=== PATIENT | female | born 1975 | race Caucasian/White ===

== ENCOUNTER 2017-01-05 16:01 | Emergency (ER) | payer OTHER ==
--- NOTE | 2017-01-05 17:36 | DIAGNOSTIC IMAGING REPORT ---
PROCEDURE: XR LUMBAR SPINE 2 OR 3 VIEWS INDICATION: LOWER BACK PAIN TECHNIQUE: Three views of the lumbar spine COMPARISON: None. FINDINGS: Five lumbar-type vertebral bodies are present. Normal vertebral body height without fracture. Normal AP and transverse alignment. Disc spacing is normal. No significant endplate or facet joint degeneration. The visible osseous pelvis and bowel gas pattern are normal. IUD in place. IMPRESSION: 1. Intact lumbar spine.
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
--- NOTE | 2017-01-05 17:55 | ED ORDER SUMMARY ---
..... Patient: RENATE BELLAMY OrderSheet [facility] VisitID: [id number] [place] [address] 41y, F Registration Date/Time: 01/05/2017 ORDER SHEET Weight: 53.0 kg (stated) Allergies: Codeine GENERAL ORDERS: POC - Urine hCG (16:32 01/05/2017 EKoroleva P.A.-C) (Ack 16:54 LNations ER Tech1) (17:09 KKnebel R.N.) Lumbar Spine 2 or 3V Urgent (17:09 01/05/2017 EKoroleva P.A.-C) (Ack 17:14 LNations ER Tech1) [facility] MEDICATION ORDERS: Dexamethasone PO 8mg (NOW) (17:11 01/05/2017 EKoroleva P.A.-C) (17:39 KKnebel R.N.) Tylenol PO 650 mg (NOW) (17:54 01/05/2017 EKoroleva P.A.-C) (18:14 KKnebel R.N.) IV FLUIDS: ORDER SHEET NOTES: [Electronically signed by Francy Seaman P.A.-C (18:12 01/05/2017)] [Electronically signed by Esther Gonzalez R.N. (19:48 01/05/2017)] [Electronically locked/signed by Esther Gonzalez R.N. (19:48 01/05/2017)]
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
--- NOTE | 2017-01-05 17:55 | ED ORDER SUMMARY ---
..... Patient: RENATE BELLAMY OrderSheet [facility] VisitID: [id number] [place] [address] 41y, F Registration Date/Time: 01/05/2017 ORDER SHEET Weight: 53.0 kg (stated) Allergies: Codeine GENERAL ORDERS: POC - Urine hCG (16:32 01/05/2017 EKoroleva P.A.-C) (Ack 16:54 LNations ER Tech1) (17:09 KKnebel R.N.) Lumbar Spine 2 or 3V Urgent (17:09 01/05/2017 EKoroleva P.A.-C) (Ack 17:14 LNations ER Tech1) [facility] MEDICATION ORDERS: Dexamethasone PO 8mg (NOW) (17:11 01/05/2017 EKoroleva P.A.-C) (17:39 KKnebel R.N.) Tylenol PO 650 mg (NOW) (17:54 01/05/2017 EKoroleva P.A.-C) (18:14 KKnebel R.N.) IV FLUIDS: ORDER SHEET NOTES: [Electronically signed by Francy Seaman P.A.-C (18:12 01/05/2017)] [Electronically signed by Esther Gonzalez R.N. (19:48 01/05/2017)] [Electronically locked/signed by Esther Gonzalez R.N. (19:48 01/05/2017)]
--- NOTE | 2017-01-05 17:55 | ED CLINICAL REPORT ---
Clinical Report - Physicians/Mid Levels [facility] [address] [place] [address] 01/05/2017 16:00 [id number] Time Seen: 16:14 Redd 19 2016. Arrived- By private vehicle. Historian- patient. HISTORY OF PRESENT ILLNESS Chief Complaint: FALL. Location of injuries- lower back, right ankle and left ankle. The injury occurred yesterday. Fell. Occurred at home. The patient complains of moderate pain. The patient sustained a blow to the head. No neck pain or loss of consciousness. (patient sustained a fall yesterday on stairs, tripping, pain to her right ankle as well as left ankle, however has been ambulatory. SHe reports striking the posterior aspect of her head as well. NO LOC.). REVIEW OF SYSTEMS No hearing loss, chest pain or fever. She has no pain on weight bearing. All systems otherwise negative, except as recorded above. SOCIAL HISTORY Smoker- current status unknown. History of drug use. No alcohol use. ADDITIONAL NOTES The nursing notes have been reviewed. PHYSICAL EXAM Vital Signs: 01/05/2017 16:10 BP: 100/58. HR: 63. RR: 16. O2 saturation: 95%. Temp: 98.1 F. Pain level now: 9/10. Appearance: Alert. No apparent distress. No backboard or C-collar. Head: Head non-tender. No swelling of head. ENT: No dental injury. No malocclusion. Neck: Painless ROM. Non-tender. No vertebral tenderness. Posterior neck: No tenderness. CVS: Heart sounds normal. Pulses normal. Respiratory: Breath sounds normal. Chest nontender. No chest wall injury. Abdomen: No visible injury. No mass. No abdominal tenderness or rebound tenderness. Back: Tenderness in the right lower and left lower lumbar area. Skin: Skin intact. Skin warm. Extremities: Normal inspection. Right wrist. No tenderness. Left wrist. No tenderness. Pelvis stable. Pelvis. No tenderness. No ecchymosis. No deformity. Right ankle. No tenderness or laceration. Left ankle. No tenderness or laceration. Neuro: [place] Coma Scale: 15- eyes open spontaneously (4); best verbal response- oriented x 3 (5); best motor response- obeys commands (6). Oriented X 3. No alteration in mental status. LABS, X-RAYS, AND EKG LS-Spine X-rays: (IMPRESSION: 1. Intact lumbar spine. Electronically Final signed by:Melisa Mina MD 01/05/2017 5:31:02 PM). PROGRESS AND PROCEDURES Course of Care: patient in the emergency room and no signs of injury. She has some lumbar tenderness, however no signs of fracture on x-ray. Patient is stable. No LOC. Patient with no signs of distress. Abd soft and non tender. Mechanical fall. Pt ambulatory, no signs of injury to ankle. 01/05/2017 16:10 BP: 100/58. HR: 63. RR: 16. O2 saturation: 95%. Temp: 98.1 F. Pain level now: 9/10. Patient is stable. Physical exam findings are improved. Symptoms better. Patient/family counseled. Disposition: Discharged. Condition: good. CLINICAL IMPRESSION Contusion to the lower back. Fall on same level by slipping. INSTRUCTIONS Apply ice. Prescription Medications: Ultram 50 mg: take 1 orally every 8 hours for 5 days, as needed for pain. Dispense fifteen (15). No refills. Substitution is permissible. OTC Medications: Take OTC medications according to label instructions. Available over the counter. Acetaminophen (available over the counter): take according to label instructions. Motrin IB 200 mg (available over the counter): take 4 orally every 8 hours as needed for pain Follow-up: Follow up with your doctor in three days. (Electronically signed by Francy Seaman P.A.-C 01/05/2017 18:12)
--- NOTE | 2017-01-05 19:48 | ED DISCHARGE INSTRUCTIONS ---
Patient: RENATE BELLAMY General Instructions [facility] VisitID: [id number] [place] [address] 41y, F Registration Date/Time: 01/05/2017 Contusion to the lower back. Fall on same level by slipping. INSTRUCTIONS Apply ice. Prescription Medications: Ultram 50 mg: take 1 orally every 8 hours for 5 days, as needed for pain. Dispense fifteen (15). No refills. Substitution is permissible. OTC Medications: Take OTC medications according to label instructions. Available over the counter. Acetaminophen (available over the counter): take according to label instructions. Motrin IB 200 mg (available over the counter): take 4 orally every 8 hours as needed for pain Follow-up: Follow up with your doctor in three days. ADDITIONAL INFORMATION Mechanical Fall You have had a fall today. It appears that the cause is mechanical. That means that you slipped, tripped or lost your balance. If your fall had been due to fainting or a seizure, further tests would be required. Home Care: Rest today and resume your normal activities when you are feeling back to normal. If you were injured during the fall, follow the advice from your doctor regarding care of your injury. You may use acetaminophen (Tylenol) or ibuprofen (Motrin, Advil) to control pain, unless another pain medicine was prescribed. [NOTE: If you have chronic liver or kidney disease or ever had a stomach ulcer or GI bleeding, talk with your doctor before using these medicines.] Fall Prevention: Was there anything that caused your fall that can be fixed, removed, or replaced? Make your home safe by keeping walkways clear of objects you may trip over. Use non-slip pads under rugs. Do not walk in poorly lit areas. Do not stand on chairs or wobbly ladders. Use caution when reaching overhead or looking upward. This position can cause a loss of balance. Be sure your shoes fit properly, have non-slip bottoms and are in good condition. Be cautious when going up and down curbs, and walking on uneven sidewalks. If your balance is poor, consider using a cane or walker. Stay as active as you can. Balance, flexibility, strength, and endurance all come from exercise. They all play a role in preventing falls. Follow Up with your doctor or as advised by our staff. Get Prompt Medical Attention if any of the following occur: Repeated mechanical falls, or unexplained falls Dizziness, fainting or seizure Severe headache Chest pain or shortness of breath Palpitations (very rapid or very slow or irregular heartbeat) Blood in vomit, stools (black or red color) Weakness of an arm or leg or one side of the face Difficulty with speech or vision Contusion, Back You have a CONTUSION of the back. This is a bruise with swelling and some bleeding under the skin. There are no broken bones. This injury takes a few days to a few weeks to heal. It is normal to feel muscle stiffness and aching in the area of injury the next day. Home Care: 1) Rest and relax your back muscles until you are feeling better. 2) Apply an ice pack (crushed or cubed ice in a plastic bag, wrapped in a towel) for 20 minutes every 2-4 hours during the first two days after a new injury. Local heat (hot shower, hot bath or heating pad) and massage will help reduce muscle spasm . Some patients feel best alternating treatments. Use the method that feels best to you for. 3) You may use acetaminophen (Tylenol) or ibuprofen (Motrin, Advil) to control pain, unless another pain medicine was prescribed. [ NOTE : If you have chronic liver or kidney disease or ever had a stomach ulcer or GI bleeding, talk with your doctor before using these medicines.] Follow Up with your doctor or this facility if your symptoms do not start to improve after three days. [NOTE: If X-rays were taken, they will be reviewed by a radiologist. You will be notified of any new findings that may affect your care.] Get Prompt Medical Attention if any of the following occur: -- Pain becomes worse or spreads to one or both legs -- Weakness or numbness in one or both legs -- Loss of bowel or bladder control -- Numbness in the groin or genital area -- Redness, warmth or drainage from the skin Ibuprofen Oral tablet What is this medicine? IBUPROFEN (eye BYOO proe fen) is a non-steroidal anti-inflammatory drug (NSAID). It is used for dental pain, fever, headaches or migraines, osteoarthritis, rheumatoid arthritis, or painful monthly periods. It can also relieve minor aches and pains caused by a cold, flu, or sore throat. How should I use this medicine? Take this medicine by mouth with a glass of water. Follow the directions on the prescription label. Take this medicine with food if your stomach gets upset. Try to not lie down for at least 10 minutes after you take the medicine. Take your medicine at regular intervals. Do not take your medicine more often than directed. A special MedGuide will be given to you by the pharmacist with each prescription and refill. Be sure to read this information carefully each time. Talk to your legal director regarding the use of this medicine in children. Special care may be needed. What side effects may I notice from receiving this medicine? Side effects that you should report to your doctor or health adult daycare coordinator as soon as possible: allergic reactions like skin rash, itching or hives, swelling of the face, lips, or tongue black or bloody stools, blood in the urine or in vomit breathing problems changes in vision chest pain general ill feeling or flu-like symptoms nausea or vomiting redness, blistering, peeling or loosening of the skin, including inside the mouth slurred speech or weakness on one side of the body stomach pain unexplained weight gain or swelling unusually weak or tired yellowing of eyes or skin Side effects that usually do not require medical attention (report to your doctor or health adult daycare coordinator if they continue or are bothersome): constipation or diarrhea dizziness gas or heartburn stomach upset What may interact with this medicine? Do not take this medicine with any of the following medications: cidofovir ketorolac methotrexate pemetrexed This medicine may also interact with the following medications: alcohol aspirin diuretics lithium other drugs for inflammation like prednisone warfarin What if I miss a dose? If you miss a dose, take it as soon as you can. If it is almost time for your next dose, take only that dose. Do not take double or extra doses. Where should I keep my medicine? Keep out of the reach of children. Store at room temperature between 15 and 30 degrees C (59 and 86 degrees F). Keep container tightly closed. Throw away any unused medicine after the expiration date. What should I tell my health care provider before I take this medicine? They need to know if you have any of these conditions: asthma cigarette smoker drink more than 3 alcohol containing drinks a day heart disease or circulation problems such as heart failure or leg edema (fluid retention) high blood pressure kidney disease liver disease stomach bleeding or ulcers an unusual or allergic reaction to ibuprofen, aspirin, other NSAIDS, other medicines, foods, dyes, or preservatives or trying to get breast-feeding What should I watch for while using this medicine? Tell your doctor or healthcare professional if your symptoms do not start to get better or if they get worse. This medicine does not prevent heart attack or stroke. In fact, this medicine may increase the chance of a heart attack or stroke. The chance may increase with longer use of this medicine and in people who have heart disease. If you take aspirin to prevent heart attack or stroke, talk with your doctor or health adult daycare coordinator. Do not take other medicines that contain aspirin, ibuprofen, or naproxen with this medicine. Side effects such as stomach upset, nausea, or ulcers may be more likely to occur. Many medicines available without a prescription should not be taken with this medicine. This medicine can cause ulcers and bleeding in the stomach and intestines at any time during treatment. Ulcers and bleeding can happen without warning symptoms and can cause . To reduce your risk, do not smoke cigarettes or drink alcohol while you are taking this medicine. You may get drowsy or dizzy. Do not drive, use machinery, or do anything that needs mental alertness until you know how this medicine affects you. Do not stand or sit up quickly, especially if you are an older patient. This reduces the risk of dizzy or fainting spells. This medicine can cause you to bleed more easily. Try to avoid damage to your teeth and gums when you brush or floss your teeth. You have been given the following additional information: Fall, Mechanical Contusion, Back Ibuprofen Oral tablet (Electronically signed by Francy Seaman P.A.-C 01/05/2017 18:12)
--- NOTE | 2017-01-05 19:48 | ED MED RECONCILIATION SUMMARY ---
Patient: RENATE BELLAMY Medication Reconciliation Report [facility] VisitID: [id number] [address] [place] [address] 41y, F Registration Date/Time: 01/05/2017 Weight: 53.0 kg Height/Length: 65 in. BMI: 19.5 ALLERGIES: Codeine The patient's Home Medications are listed below: THE FOLLOWING MEDICATIONS NEED TO BE RECONCILED: ClonazePAM Oral Vitamin D Oral Zyban Oral The source(s) of the original Home Medication information: Not obtained. The following Medications were given to the patient in the Emergency Department: Dexamethasone [PO] PO 8 mg, administered: 01/05/2017 5:39:00 PM Tylenol [PO] PO 650 mg, administered: 01/05/2017 6:14:00 PM The following Medications were prescribed to the patient: Take OTC medications according to label instructions. Available over the counter. -- Francy Seaman, P.A.-C Acetaminophen (available over the counter): take according to label instructions. -- Francy Seaman, P.A.-C Motrin IB 200 mg (available over the counter): take 4 orally every 8 hours as needed for pain -- Francy Seaman, P.A.-C Ultram 50 mg: take 1 orally every 8 hours for 5 days, as needed for pain. Dispense fifteen (15). No refills. Substitution is permissible. -- Francy Seaman, P.A.-C
--- NOTE | 2017-01-05 19:48 | ED MED RECONCILIATION SUMMARY ---
Patient: RENATE BELLAMY Medication Reconciliation Report [facility] VisitID: [id number] [address] [place] [address] 41y, F Registration Date/Time: 01/05/2017 Weight: 53.0 kg Height/Length: 65 in. BMI: 19.5 ALLERGIES: Codeine The patient's Home Medications are listed below: THE FOLLOWING MEDICATIONS NEED TO BE RECONCILED: ClonazePAM Oral Vitamin D Oral Zyban Oral The source(s) of the original Home Medication information: Not obtained. The following Medications were given to the patient in the Emergency Department: Dexamethasone [PO] PO 8 mg, administered: 01/05/2017 5:39:00 PM Tylenol [PO] PO 650 mg, administered: 01/05/2017 6:14:00 PM The following Medications were prescribed to the patient: Take OTC medications according to label instructions. Available over the counter. -- Francy Seaman, P.A.-C Acetaminophen (available over the counter): take according to label instructions. -- Francy Seaman, P.A.-C Motrin IB 200 mg (available over the counter): take 4 orally every 8 hours as needed for pain -- Francy Seaman, P.A.-C Ultram 50 mg: take 1 orally every 8 hours for 5 days, as needed for pain. Dispense fifteen (15). No refills. Substitution is permissible. -- Francy Seaman, P.A.-C
--- NOTE | 2017-01-05 19:48 | ED MAR SUMMARY ---
..... Medication Administration Record [facility] [address] [place] [address] Patient: RENATE BELLAMY Visit ID: [id number] 41y, F Weight: 53.0 kg Height/Length: 65 in BMI: 19.5 ALLERGIES: Codeine Given 17:39 01/05/2017 Esther Gonzalez, RSherryNSherry Medication Administered: DEXAMETHASONE [PO] (DEXAMETHASONE), Dose: 8 mg Tablets PO. Medication Ordered: Dexamethasone PO 8mg (NOW). Given 18:14 01/05/2017 Esther Gonzalez, R.N. Medication Administered: TYLENOL [PO] (ACETAMINOPHEN), Dose: 650 mg Tablets PO. Medication Ordered: Tylenol PO 650 mg (NOW).
--- NOTE | 2017-01-05 19:48 | ED MAR SUMMARY ---
..... Medication Administration Record [facility] [address] [place] [address] Patient: RENATE BELLAMY Visit ID: [id number] 41y, F Weight: 53.0 kg Height/Length: 65 in BMI: 19.5 ALLERGIES: Codeine Given 17:39 01/05/2017 Esther Gonzalez, RSherryNSherry Medication Administered: DEXAMETHASONE [PO] (DEXAMETHASONE), Dose: 8 mg Tablets PO. Medication Ordered: Dexamethasone PO 8mg (NOW). Given 18:14 01/05/2017 Esther Gonzalez, R.N. Medication Administered: TYLENOL [PO] (ACETAMINOPHEN), Dose: 650 mg Tablets PO. Medication Ordered: Tylenol PO 650 mg (NOW).
== END 2017-01-05 17:19 | disposition home or self-care (01) ==
LOC: ED SRH 16:01
DX: S30.0XXA Contusion of lower back and pelvis, initial encounter (principal); W01.0XXA Fall on same level from slipping, tripping and stumbling without subsequent striking against object, initial encounter; Y93.01 Activity, walking, marching and hiking; Y99.9 Unspecified external cause status; Y92.009 Unspecified place in unspecified non-institutional (private) residence as the place of occurrence of the external cause

== ENCOUNTER 2017-01-08 18:01 | Emergency (ER) | payer OTHER ==
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
--- NOTE | 2017-01-08 19:55 | ED ORDER SUMMARY ---
..... Patient: RENATE BELLAMY OrderSheet [facility] VisitID: [id number] [address] [place] [address] 41y, F Registration Date/Time: 01/08/2017 ORDER SHEET Weight: 52.6 kg (stated) Allergies: No Known Drug Allergy GENERAL ORDERS: CT Head wo Cont Urgent (18:53 01/08/2017 Alfred ESTRADA) (Ack 18:58 AMcQuoid ER Tech1) (19:22 MCampbell) CT Lumbar Spine wo Cont Urgent (18:56 01/08/2017 Alfred ESTRADA) (Ack 18:58 AMcQuoid ER Tech1) (19:22 MCampbell) MEDICATION ORDERS: IV FLUIDS: ORDER SHEET NOTES: [Electronically signed by Patrica Vargas (20:17 01/08/2017)] [Electronically signed by Michelle Beatty MD (11:20 01/18/2017)] [Electronically locked/signed by Patrica Vargas (20:17 01/08/2017)]
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
--- NOTE | 2017-01-08 19:55 | ED ORDER SUMMARY ---
..... Patient: RENATE BELLAMY OrderSheet [facility] VisitID: [id number] [address] [place] [address] 41y, F Registration Date/Time: 01/08/2017 ORDER SHEET Weight: 52.6 kg (stated) Allergies: No Known Drug Allergy GENERAL ORDERS: CT Head wo Cont Urgent (18:53 01/08/2017 Alfred ESTRADA) (Ack 18:58 AMcQuoid ER Tech1) (19:22 MCampbell) CT Lumbar Spine wo Cont Urgent (18:56 01/08/2017 Alfred ESTRADA) (Ack 18:58 AMcQuoid ER Tech1) (19:22 MCampbell) MEDICATION ORDERS: IV FLUIDS: ORDER SHEET NOTES: [Electronically signed by Patrica Vargas (20:17 01/08/2017)] [Electronically signed by Michelle Beatty MD (11:20 01/18/2017)] [Electronically locked/signed by Patrica Vargas (20:17 01/08/2017)]
--- NOTE | 2017-01-18 11:20 | ED MAR SUMMARY ---
..... Medication Administration Record [facility] [address] [place], [place] [id number] Patient: RENATE BELLAMY Visit ID: [id number] 41y, F Weight: 52.6 kg Height/Length: 65 in BMI: 19.3 ALLERGIES: No Known Drug Allergy
--- NOTE | 2017-01-18 11:20 | ED MAR SUMMARY ---
..... Medication Administration Record [facility] [address] [place], [place] [id number] Patient: RENATE BELLAMY Visit ID: [id number] 41y, F Weight: 52.6 kg Height/Length: 65 in BMI: 19.3 ALLERGIES: No Known Drug Allergy
--- NOTE | 2017-01-18 11:20 | ED MED RECONCILIATION SUMMARY ---
Patient: RENATE BELLAMY Medication Reconciliation Report [facility] VisitID: [id number] [address] [place] [address] 41y, F Registration Date/Time: 01/08/2017 Weight: 52.6 kg Height/Length: 65 in. BMI: 19.3 ALLERGIES: No Known Drug Allergy The patient's Home Medications are listed below: CONTINUE TAKING THE FOLLOWING MEDICATIONS: ClonazePAM Oral LaMICtal Oral Vitamin D Oral The source(s) of the original Home Medication information: Not obtained. The following Medications were given to the patient in the Emergency Department: None. The following Medications were prescribed to the patient: Hydrocodone/APAP 5mg / 325mg: take 1-2 orally every 6 hours as needed for pain. Dispense fifteen (15). No refill. -- Michelle Beatty MD
--- NOTE | 2017-01-18 11:20 | ED MED RECONCILIATION SUMMARY ---
Patient: RENATE BELLAMY Medication Reconciliation Report [facility] VisitID: [id number] [address] [place] [address] 41y, F Registration Date/Time: 01/08/2017 Weight: 52.6 kg Height/Length: 65 in. BMI: 19.3 ALLERGIES: No Known Drug Allergy The patient's Home Medications are listed below: CONTINUE TAKING THE FOLLOWING MEDICATIONS: ClonazePAM Oral LaMICtal Oral Vitamin D Oral The source(s) of the original Home Medication information: Not obtained. The following Medications were given to the patient in the Emergency Department: None. The following Medications were prescribed to the patient: Hydrocodone/APAP 5mg / 325mg: take 1-2 orally every 6 hours as needed for pain. Dispense fifteen (15). No refill. -- Michelle Beatty MD
--- NOTE | 2017-01-18 11:20 | ED DISCHARGE INSTRUCTIONS ---
Patient: RENATE BELLAMY General Instructions [facility] VisitID: [id number] [place] [address] 41y, F Registration Date/Time: 01/08/2017 Sprain of the tibiofibular ligament of the right ankle and tibiofibular ligament of the left ankle. INSTRUCTIONS (The CTs of your head and spine look good. There is no evidence of a neurologic injury, or of major bony trauma causing your symptoms. You've most likely sprained your ankles, which is responsible for the ongoing pain and occasional sensation of weakness. This will improve over time as your ankles heal. You may use the ankle wraps that you have mentioned to provide some extra support. You may bear weight on your feet and ankles, as tolerated.). Warnings: GENERAL WARNINGS: Return or contact your physician immediately if your condition worsens or changes unexpectedly, if not improving as expected, or if other problems arise. Your Current Medications: CONTINUE TAKING THE FOLLOWING MEDICATIONS: ClonazePAM Oral. LaMICtal Oral. Vitamin D Oral. Prescription Medications: Hydrocodone/APAP 5mg / 325mg: take 1-2 orally every 6 hours as needed for pain. Dispense fifteen (15). No refill. Follow-up: Follow up with your doctor in two weeks if not better. Understanding of the discharge instructions verbalized by patient. ADDITIONAL INFORMATION Sprain, Ankle ([place] Rules: No X-Ray) Based on your exam today, you have an ankle sprain. This is a tearing of the ligaments that hold the ankle joint together. [place] Ankle Rules are guidelines that help doctors and triage nurses avoid unnecessary X-rays. In your case, these rules tell us that the chance of a fracture causing your symptoms is so small that an X-ray is not advised. Sprains take from 36 weeks to heal. Sprains may be treated with an elastic wrap or an in-shoe splint to provide support and prevent reinjury. Very mild sprains may not require any additional support. Home care The following guidelines will help you care for your sprain at home: Stay off the injured leg as much as possible until you can walk on it without pain. You may use crutches during the first week for this purpose. (Crutches can be rented at many pharmacies or surgical/orthopedic supply stores.) Keep your leg elevated when sitting or lying down. This is very important during the first 48 hours. Make an ice pack (ice cubes in a plastic bag, wrapped in a towel) and apply over the injured area for 20 minutes every 1-2 hours the first day. You should continue with ice packs 3-4 times a day for the next two days. Continue the use of ice packs for relief of pain and swelling as needed. You may use acetaminophen or ibuprofen to control pain, unless another pain medicine was prescribed. If you have chronic liver or kidney disease or ever had a stomach ulcer or GI bleeding, talk with your doctor before using these medicines. Follow-up care Follow up with your doctor as advised. Check for any warning signs listed below. If you had X-rays today, they didnt show any broken bones, breaks, or fractures. Sometimes fractures dont show up on the first X-ray. Bruises and sprains can sometimes hurt as much as a fracture. These injuries can take time to heal completely. If your symptoms dont improve or they get worse, talk with your doctor. You may need a repeat X-ray. When to seek medical care Get prompt medical attention if any of the following occur: Pain or swelling increases Toes become cold, blue, numb or tingly You have been given the following additional information: Sprain, Ankle, No X-Ray (Electronically signed by Michelle Beatty MD 01/18/2017 11:20)
--- NOTE | 2017-01-18 11:20 | ED DISCHARGE INSTRUCTIONS ---
Patient: RENATE BELLAMY General Instructions [facility] VisitID: [id number] [place] [address] 41y, F Registration Date/Time: 01/08/2017 Sprain of the tibiofibular ligament of the right ankle and tibiofibular ligament of the left ankle. INSTRUCTIONS (The CTs of your head and spine look good. There is no evidence of a neurologic injury, or of major bony trauma causing your symptoms. You've most likely sprained your ankles, which is responsible for the ongoing pain and occasional sensation of weakness. This will improve over time as your ankles heal. You may use the ankle wraps that you have mentioned to provide some extra support. You may bear weight on your feet and ankles, as tolerated.). Warnings: GENERAL WARNINGS: Return or contact your physician immediately if your condition worsens or changes unexpectedly, if not improving as expected, or if other problems arise. Your Current Medications: CONTINUE TAKING THE FOLLOWING MEDICATIONS: ClonazePAM Oral. LaMICtal Oral. Vitamin D Oral. Prescription Medications: Hydrocodone/APAP 5mg / 325mg: take 1-2 orally every 6 hours as needed for pain. Dispense fifteen (15). No refill. Follow-up: Follow up with your doctor in two weeks if not better. Understanding of the discharge instructions verbalized by patient. ADDITIONAL INFORMATION Sprain, Ankle ([place] Rules: No X-Ray) Based on your exam today, you have an ankle sprain. This is a tearing of the ligaments that hold the ankle joint together. [place] Ankle Rules are guidelines that help doctors and triage nurses avoid unnecessary X-rays. In your case, these rules tell us that the chance of a fracture causing your symptoms is so small that an X-ray is not advised. Sprains take from 36 weeks to heal. Sprains may be treated with an elastic wrap or an in-shoe splint to provide support and prevent reinjury. Very mild sprains may not require any additional support. Home care The following guidelines will help you care for your sprain at home: Stay off the injured leg as much as possible until you can walk on it without pain. You may use crutches during the first week for this purpose. (Crutches can be rented at many pharmacies or surgical/orthopedic supply stores.) Keep your leg elevated when sitting or lying down. This is very important during the first 48 hours. Make an ice pack (ice cubes in a plastic bag, wrapped in a towel) and apply over the injured area for 20 minutes every 1-2 hours the first day. You should continue with ice packs 3-4 times a day for the next two days. Continue the use of ice packs for relief of pain and swelling as needed. You may use acetaminophen or ibuprofen to control pain, unless another pain medicine was prescribed. If you have chronic liver or kidney disease or ever had a stomach ulcer or GI bleeding, talk with your doctor before using these medicines. Follow-up care Follow up with your doctor as advised. Check for any warning signs listed below. If you had X-rays today, they didnt show any broken bones, breaks, or fractures. Sometimes fractures dont show up on the first X-ray. Bruises and sprains can sometimes hurt as much as a fracture. These injuries can take time to heal completely. If your symptoms dont improve or they get worse, talk with your doctor. You may need a repeat X-ray. When to seek medical care Get prompt medical attention if any of the following occur: Pain or swelling increases Toes become cold, blue, numb or tingly You have been given the following additional information: Sprain, Ankle, No X-Ray (Electronically signed by Michelle Beatty MD 01/18/2017 11:20)
== END 2017-01-08 20:11 | disposition home or self-care (01) ==
LOC: ED SRH 18:01
DX: S93.431A Sprain of tibiofibular ligament of right ankle, initial encounter (principal); S93.432A Sprain of tibiofibular ligament of left ankle, initial encounter; W10.9XXA Fall (on) (from) unspecified stairs and steps, initial encounter; Y93.01 Activity, walking, marching and hiking